=== PATIENT | female | born 1990 | race Two or more races ===

== ENCOUNTER → 2017-03-21 | Outpatient (CLI) | payer OTHER ==
--- NOTE | 2017-03-21 14:14 | RAD ---
Indication pelvic pain. Initially transabdominal scans were obtained. The initial transabdominal scans were supplemented with transvaginal scans. The history of has been provided however no documentation of a positive test is available at the time of the interpretation of this exam. No quantitative hCG value is available. The uterus measures approximately 7.7 x 5.4 x 3.9 cm and appears normal. The endometrium appears normal. No gestational sac yolk sac or definite evidence of an IUP is seen. The ovaries appeared normal. A small amount of free fluid was seen in the pelvis which is likely physiologic. The results of this imaging tests should be correlated with a quantitative hCG value. IMPRESSION: Normal study. No IUP seen. Correlation with a quantitative hCG value should be considered
== END | disposition home or self-care (01) ==
LOC: US 12:33
PROVIDERS: ATTEND Physician Assistant
DX: R10.2 Pelvic and perineal pain (principal)
CPT/HCPCS: 76801; 76817

== ENCOUNTER → 2019-05-08 | Outpatient (CLI) | payer OTHER ==
--- NOTE | 2019-05-08 16:05 | RAD ---
EXAM: Pelvic sonogram. HISTORY: Pain. TECHNIQUE: Sonographic imaging of the pelvis was performed. COMPARISON: None. FINDINGS: The uterus is normal in size. The endometrial stripe measures 4 mm in thickness. The ovaries normal in size and demonstrate normal blood flow. There is no pelvic free fluid. IMPRESSION: Unremarkable pelvic sonogram. Electronically signed by: Maday Carrillo MD (05/08/2019 4:02 PM) [facility]
== END | disposition home or self-care (01) ==
LOC: US 15:02
PROVIDERS: ATTEND Obstetrics & Gynecology
DX: Z01.419 Encounter for gynecological examination (general) (routine) without abnormal findings (principal); R10.2 Pelvic and perineal pain; N94.10 Unspecified dyspareunia
CPT/HCPCS: 76830; 76856